=== PATIENT | male | born 1960 | race Caucasian/White ===

== ENCOUNTER 2016-05-18 08:44 | Emergency (ER) | payer OTHER ==
[2016-05-18 09:58] LABS: URINE CULTURE NEEDED? NO; URINE MICRO REVIEW NEEDED? NO; URINE SOURCE CLEAN CATCH
[2016-05-18 10:05] LABS: BILIRUBIN URINE NEGATIVE (NEGATIVE); BLOOD URINE MODERATE (NEGATIVE); COLOR YELLOW; GLUCOSE URINE NEGATIVE (NEGATIVE); LEUKOCYTES URINE NEGATIVE (NEGATIVE); NITRITE URINE NEGATIVE (NEGATIVE); PH URINE 5.5; PROTEIN URINE NEGATIVE (NEGATIVE); SP GRAVITY URINE 1.021; TURBIDITY URINE CLEAR (CLEAR); UROBILINOGEN URINE NORMAL (NORMAL)
[2016-05-18 10:07] LABS: UR EPITHELIAL CELLS <10 /HPF (<10); URINE BACTERIA NEGATIVE /HPF; URINE RBC TNTC /HPF (<10); URINE WBC <10 /HPF (<10)
[2016-05-18] MEDS ORDERED: DILAUDID IV ONE (10:22)
[2016-05-18] MEDS ORDERED: ZOFRAN IV ONE (10:22)
[2016-05-18] MEDS ORDERED: NS 1,000 ML IV ONE (10:27)
--- NOTE | 2016-05-18 10:28 | PROVIDER DOCUMENTATION ---
HPI-Abdominal Pain/GI Problem - General Chief Complaint: Flank Pain Stated Complaint: lower back pain Time Seen by Provider: 05/18/16 10:12 Source: patient Allergies/Adverse Reactions: Patient Allergies Allergy/AdvReac Type Severity Reaction Status Date / Time No Known Allergies Allergy Verified 05/18/16 10:23 Home Medications: Home Medication List Medication Instructions Recorded Confirmed Last Taken Type Losartan/Hydrochlorothiazide 0.5 each PO DAILY 05/18/16 05/18/16 05/18/16 06:00 History [Losartan-Hctz 100-25 mg Tab] Ondansetron [Zofran] 4 mg PO Q6H PRN PRN #14 tablet 05/18/16 Unknown Rx Tramadol [Ultram] 50 mg PO Q6H PRN PRN #14 tablet 05/18/16 Unknown Rx - History of Present Illness-ABD Nature of Presenting Problems: 55 y/o M with history of HTN, renal stones presents with left flank and left low back pain that began 2 hours prior to arrival. Patient complains of severe pain that lasted approximately 30 minutes with associated vomiting. Patient states he experienced the same pain 20 years ago when he had a kidney stone. He reports a dull ache in the left flank/low back currently. He denies any fever, diarrhea. Review of Systems - Adult - REVIEW OF SYSTEMS - ADULT Constitutional: reports: no symptoms reported. denies: chills, fever Eyes: reports: no symptoms reported. denies: decreased vision, blurred vision Ears, Nose, Mouth & Throat: reports: no symptoms reported. denies: ear pain, hearing loss Cardiovascular: reports: no symptoms reported. denies: chest pain Respiratory: reports: no symptoms reported. denies: cough, shortness of breath , wheezing Gastrointestinal: reports: nausea, vomiting. denies: abdominal pain, diarrhea Genitourinary: reports: see HPI Musculoskeletal: reports: back pain. denies: muscle aches, muscle weakness Integumentary: reports: no symptoms reported. denies: itching, rash Neurological: reports: no symptoms reported. denies: dizziness/vertigo, headache/migraines Psychiatric: reports: no symptoms reported Endocrine: reports: no symptoms reported Hematologic/Lymphatic: reports: no symptoms reported Allergic/Immunologic: reports: no symptoms reported All Other Systems: Reviewed and Negative Past History - Adult - PAST MEDICAL HISTORY-ADULT Review of Records: reports: Nursing Assessment Review, Medications Reviewed Physical Exam-General - PHYSICAL EXAM-ADULT Initial Vital Signs Reviewed: Yes - CONSTITUTIONAL General Appearance: appears well, alert, no apparent distress - EYES Eyes: PERRL/EOMI, pink conjunctivae - HEAD, EARS, NOSE, MOUTH & THROAT HENMT: normocephalic/atraumatic, moist mucous membranes - NECK Neck: non-tender, full range of motion, supple - RESPIRATORY Respiratory: chest non-tender, lungs clear, normal breath sounds, no pleuratic chest pain, no respiratory distress, no accessory muscle use - CARDIOVASCULAR Cardiovascular: normal peripheral pulses, regular rate, rhythm, no edema, no gallop, no JVD, no murmur - GASTROINTESTINAL (ABDOMEN) Abdominal Exam: normal bowel sounds, non tender, soft - MUSCULOSKELETAL Back Exam: normal inspection, no CVA tenderness, no vertebral tenderness Extremity: normal range of motion, non-tender, normal gait - SKIN Integumentary: normal color, normal turgor, warm/dry - NEUROLOGIC Neurologic: grossly normal, no motor/sensory deficits - PSYCHIATRIC Psych/Mental Status: normal mood/affect, normal thought content, normal thought process, oriented x 3 Progress - PLAN OF CARE/RESULTS Progress/Plan/Lab Results: Laboratory Tests 05/18/16 05/18/16 05/18/16 09:11 10:33 10:33 WBC 7.52 RBC 5.45 Hgb 16.4 Hct 45.9 MCV 84.2 MCH 30.1 MCHC 35.7 RDW Std Deviation 12.2 Plt Count 193 MPV 10.1 Immature Gran % (Auto) 0.0 Neut % (Auto) 71.7 Lymph % (Auto) 18.9 L [place] % (Auto) 7.4 Eos % (Auto) 1.5 Baso % (Auto) 0.5 Immature Gran # (Auto) 0.00 Neut # (Auto) 5.39 Lymph # (Auto) 1.42 [place] # (Auto) 0.56 Eos # (Auto) 0.11 Baso # (Auto) 0.04 Sodium 138 Potassium 4.1 Chloride 104 Carbon Dioxide 21 L Anion Gap 13 BUN 14 Creatinine 1.1 Estimated GFR/1.73 m2 > 60 BUN/Creatinine Ratio 13 Glucose 93 Calculated Osmolality 276 Calcium 9.3 Total Bilirubin 0.81 AST 21 ALT 20 Alkaline Phosphatase 71 Total Protein 7.0 Albumin 3.6 Globulin 3.4 Albumin/Globulin Ratio 1.1 Lipase 18 Urine Source CLEAN CATCH Urine Color YELLOW Urine Turbidity CLEAR Urine pH 5.5 Ur Specific [place] 1.021 Urine Protein NEGATIVE Ur Glucose (Stick) NEGATIVE Ur Ketones (Stick) NEGATIVE Urine Blood MODERATE A Urine Nitrite NEGATIVE Urine Bilirubin NEGATIVE Urobilinogen Dipstick NORMAL Urine Leukocytes NEGATIVE Urine WBC (Auto) <10 Urine RBC (Auto) TNTC A U Epithel Cells (Auto) <10 Urine Bacteria (Auto) NEGATIVE Orders Category Date Time Status IV Insertion ORDERED Care 05/18/16 10:21 Active RENAL STONE SEARCH [CT] Stat Exams 05/18/16 10:22 Taken CBC WITH ELECTRONIC DIFF [HEME] Stat Lab 05/18/16 10:33 Completed COMPREHENSIVE METABOLIC PANEL [CHEM] Stat Lab 05/18/16 10:33 Completed LIPASE [CHEM] Stat Lab 05/18/16 10:33 Completed URINALYSIS W/POSS RFLX CULT [URINALYSIS] Stat Lab 05/18/16 09:11 Completed 0.9% Sodium Chloride Inj [Ns] 1,000 ml Med 05/18/16 10:27 Discontinued IV 999 mls/hr Hydromorphone [Dilaudid] Med 05/18/16 10:22 Discontinued 1 mg IV NOW ONE Ondansetron [Zofran] Med 05/18/16 10:22 Discontinued 4 mg IV NOW ONE Vital Signs Temp Pulse Resp BP Pulse Ox 05/18/16 08:49 97.9 F 59 L 20 129/84 98 No Known Allergies Allergy (Verified 05/18/16 10:23) Losartan/Hydrochlorothiazide [Losartan-Hctz 100-25 mg Tab] 0.5 each PO DAILY Laboratory 05/18/16 05/18/16 05/18/16 10:33 10:33 09:11 WBC 7.52 RBC 5.45 Hgb 16.4 Hct 45.9 MCV 84.2 MCH 30.1 MCHC 35.7 RDW Std Deviation 12.2 Plt Count 193 MPV 10.1 Immature Gran % (Auto) 0.0 Neut % (Auto) 71.7 Lymph % (Auto) 18.9 L [place] % (Auto) 7.4 Eos % (Auto) 1.5 Baso % (Auto) 0.5 Immature Gran # (Auto) 0.00 Neut # (Auto) 5.39 Lymph # (Auto) 1.42 [place] # (Auto) 0.56 Eos # (Auto) 0.11 Baso # (Auto) 0.04 Sodium 138 Potassium 4.1 Chloride 104 Carbon Dioxide 21 L Anion Gap 13 BUN 14 Creatinine 1.1 Estimated GFR/1.73 m2 > 60 BUN/Creatinine Ratio 13 Glucose 93 Calculated Osmolality 276 Calcium 9.3 Total Bilirubin 0.81 AST 21 ALT 20 Alkaline Phosphatase 71 Total Protein 7.0 Albumin 3.6 Globulin 3.4 Albumin/Globulin Ratio 1.1 Lipase 18 Urine Source CLEAN CATCH Urine Color YELLOW Urine Turbidity CLEAR Urine pH 5.5 Ur Specific [place] 1.021 Urine Protein NEGATIVE Ur Glucose (Stick) NEGATIVE Ur Ketones (Stick) NEGATIVE Urine Blood MODERATE A Urine Nitrite NEGATIVE Urine Bilirubin NEGATIVE Urobilinogen Dipstick NORMAL Urine Leukocytes NEGATIVE Urine WBC (Auto) <10 Urine RBC (Auto) TNTC A U Epithel Cells (Auto) <10 Urine Bacteria (Auto) NEGATIVE - REASSESSMENT Reassessment #1 Time Reassessed: 11:34 (Patient remained stable throughout ER visit. Workup shows only hematuria, otherwise unremarkable. Discussed with Dr. Campbell. Will discharge home to f/u with PCP.) Status: unchanged - CT/MRI 1 CT Study: Renal Stone CT Results: no stones or obstruction Departure - Departure Time of Disposition Order: 11:35 DIAGNOSIS: Hematuria, Left flank pain Disposition: HOME 01 Certified Medical Emergency: Emergent Condition: Good Additional Instructions: Follow up with your primary care doctor regarding blood in urine. ED Follow Up Instructions: You have been treated by a care provider in the Emergency Department. These instructions are being provided to you so you can have an understanding of how to care for yourself upon discharge. Upon discharge from the Emergency Department, you are responsible for making arrangements for follow-up care by a physician of your choice. Take all prescribed medications as directed. Return to the Emergency Department immediately for any new or worsening symptoms. You may call the Physician Referral phone number at [phone] to obtain a list of Physicians who are taking new patients. Prescriptions: Tramadol [Ultram] 50 mg PO Q6H PRN PRN #14 tablet PRN Reason: Pain Ondansetron [Zofran] 4 mg PO Q6H PRN PRN #14 tablet PRN Reason: Nausea Referrals: Johan,Cat A., REAL ESTATE INSTRUCTOR [Primary Care Provider] - Forms: Return to School/Parent Work Instructions: Flank Pain, [id number], Hematuria, Adult Attestation - Physician/ [facility] Attestation Patient care was provided by Advanced Practice Provider:: Yes Advanced Practice Provider:: Lucia Chavarria Advanced Practice Provider documentation review:: The Mid-level provider documentation, treatment plan and medical decision making was reviewed by the physician who agrees with all treatment and medical decision making by the MLP.
[2016-05-18 11:01] LABS: MANUAL DIFF NEEDED? NO
[2016-05-18 11:04] LABS: BASO% 0.5 % (0.0-0.8); EOS# 0.11 X1000 (0.0-0.7); EOS% 1.5 % (0.0-10.0); HEMATOCRIT 45.9 % (42.0-52.0); HEMOGLOBIN 16.4 g/dL (14.0-18.0); LYMPH# 1.42 X1000 (1.2-3.4); LYMPH% 18.9 % (20.5-51.1); MCH 30.1 PG (27-31); MCHC 35.7 g/dL (33-37); MCV 84.2 FL (81-99); MONO# 0.56 X1000 (0.11-0.59); MONO% 7.4 % (1.7-9.3); MPV 10.1 FL (7.4-10.4); NEUT% 71.7 % (42.2-75.2); PLT 193 X1000 (130-400); RBC 5.45 XMIL (4.7-6.1)
[2016-05-18 11:24] LABS: AGAP 13; ALBUMIN 3.6 g/dL (3.5-5.0); ALKALINE PHOSPHATASE 71 U/L (32-122); BUN 14 mg/dL (8-22); CALCIUM 9.3 mg/dL (8.8-10.2); CHLORIDE 104 mmol/L (98-107); COSMO 276; GOT 21 U/L (10-34); GPT 20 U/L (10-44); LIPASE 18 U/L (13-60); POTASSIUM 4.1 mmol/L (3.5-5.1); SODIUM 138 mmol/L (136-145); TCO2 21 mmol/L (25-35); TOTAL BILIRUBIN 0.81 mg/dL (0.20-1.00)
[2016-05-18 12:41] VITALS: BP 111/62
--- NOTE | 2016-05-18 12:41 | Diag Imaging Result Document ---
PROCEDURE NAME: RENAL STONE SEARCH - 05/18/2016 CT UROGRAM WITHOUT CONTRAST: FINDINGS: There is no evidence of nephrolithiasis or hydronephrosis. There are scattered diverticula in the colon. There is no evidence of small bowel dilatation. The gallbladder has been resected. The appendix is normal in appearance. No abnormal fluid collections are present. There is no evidence of free air. IMPRESSION: No evidence of stones or obstruction.
== END 2016-05-18 12:42 | disposition home or self-care (01) ==
LOC: ED 08:44
DX: R31.9 Hematuria, unspecified (principal); R10.9 Unspecified abdominal pain; M54.5 Low back pain; R11.2 Nausea with vomiting, unspecified; I10 Essential (primary) hypertension; Z79.899 Other long term (current) drug therapy; Z87.442 Personal history of urinary calculi
CPT/HCPCS: 74176; 80053; 81001; 83690; 85025; J1170; J2405; J7030